=== PATIENT | female | born 1965 | race Two or more races ===

== ENCOUNTER 2017-06-21 11:56 | Day surgery (SDC) | payer OTHER ==
[~2017-06-21] VITALS: Ht 157.5 cm; Wt 59.0 kg
[2017-06-21] VITALS (9 sets, daily range): BP systolic 107–139; BP diastolic 63–88
--- NOTE | 2017-06-21 07:44 | Pre-Procedure Note/Attestation ---
Pre-Procedure Note/Attestation Complete Prior to Procedure Planned Procedure: left Procedure Narrative: knee arthroscopy, possible menisectomy Indications for Procedure Pre-Operative Diagnosis: left knee medial meniscus tear Attestation I attest that I discussed the nature of the procedure; its benefits; risks and complications; and alternatives (and the risks and benefits of such alternatives ), prior to the procedure, with the patient (or the patient's legal parts counter representative). I attest that, if there was a reasonable possibility of needing a blood transfusion, the patient (or the patient's legal parts counter representative) was given the [facility] standardized written summary, pursuant to the Sudheer Blanche Blood Safety Act ([place] Health and Safety Code # 1645, as amended). I attest that I re-evaluated the patient just prior to the surgery and that there has been no change in the patient's H&P, except as documented below: HINA ALCOCER Jun 21, 2017 07:44
--- NOTE | 2017-06-21 07:44 | Operative Note - PDOC ---
Operative Note Operative Note Pre-op Diagnosis: left knee medial meniscus tear Procedure: left knee arthroscopy Post-op Diagnosis: same as pre-op plus Operative Findings: consistent w/pre-op dx studies Anesthesia: MAC Specimen: none Complications: none Condition: stable Estimated Blood Loss: none Implant(s) used?: HINA Mcgee Jun 21, 2017 07:44
[~2017-06-21 11:56] MED LIST: D5 1/2NS 1,000 ML IV SCH; HYDROmorphone 1mg/ml Carpuject SUBQ PRN; Norco 5mg/325mg tab ORAL PRN; Tylenol #3 tab (300mg/30mg) ORAL PRN; ceFAZolin 1gm in D5W 55ml IVP ONE; celeBREX 200mg Cap **SURGERY PATIENTS ONLY ORAL ONE; oxyCONTIN 20mg tab ORAL ONE
[2017-06-21] MEDS ORDERED: PROVENTIL HFA6.7 G1 IH (12:55)
[2017-06-21] MEDS ORDERED: QVAR7.3 GM INH (12:55)
[2017-06-21] MEDS ORDERED: LORATADINE10 M2 PO (12:55)
[2017-06-21] MEDS ORDERED: FLUTICASONE PRO16 G1 NASAL (12:55)
[2017-06-21] MEDS ORDERED: Ketorolac 30mg Inj ONE ×2 (13:40→14:00)
[2017-06-21] MEDS ORDERED: Kenalog-40 1ml Vial ONE (13:40)
[2017-06-21] MEDS ORDERED: Bupivacaine 0.25% Inj 30ml INJ ONE (13:40)
[2017-06-21] MEDS ORDERED: Morphine Sulfate PF 10 ML ONE (13:40)
[2017-06-21] MEDS ORDERED: Lidocaine 1% 10mg/ml/Epi 0.005mg/ml 30ml vial INJ ONE (13:41)
[2017-06-21] MEDS ORDERED: EPINEPHrine 1mg/1ml Amp ONE (13:41)
[2017-06-21] MEDS ORDERED: LR 1000ml ONE (14:00)
[2017-06-21] MEDS ORDERED: Lidocaine 1% MPF 10mg/ml 5ml ONE (14:00)
[2017-06-21] MEDS ORDERED: Midazolam 2mg/2ml Inj ONE (14:00)
[2017-06-21] MEDS ORDERED: Metoclopramide 10mg/2ml Inj ONE (14:00)
[2017-06-21] MEDS ORDERED: NS Irrig 4000ml IRRIG ONE (14:00)
[2017-06-21] MEDS ORDERED: fentaNYL 100 mcg/2 mL IV ONE (14:00)
[2017-06-21] MEDS ORDERED: Duramorph PF 10mg/10ml amp IV ONE (14:06)
[2017-06-21] MEDS ORDERED: Propofol 200mg/20ml IV ONE (14:16)
[2017-06-21] MEDS ORDERED: fentaNYL 100 mcg/2 mL IV PRN (14:45)
[2017-06-21] MEDS ORDERED: Metoclopramide 10mg/2ml Inj IVP PRN (14:45)
--- NOTE | 2017-06-21 14:46 | Anethesia Preoperative Eval ---
Anesthesia Pre-op PMH/ROS General Date of Evaluation: Jun 21, 2017 Time of Evaluation: 14:05 Anesthesiologist: tray ASA Score: ASA 2 Mallampati Score Class I : Soft palate, uvula, fauces, pillars visible Class II: Soft palate, uvula, fauces visible Class III: Soft palate, base of uvula visible Class IV: Only hard plate visible Mallampati Classification: Class II Surgeon: chin Diagnosis: left knee pain Surgical Procedure: left knee arthroscopy Anesthesia History: none Family History: no anesthesia problems Allergies: Coded Allergies: No Known Allergies (Unverified , 06/20/17) Medications: see eMAR Past Medical History Cardiovascular: Denies: HTN, CAD, TX, valve dz, arrhythmia, other Pulmonary: Reports: asthma Gastrointestinal/Genitourinary: Denies: GERD, CRI, ESRD, other Neurologic/Psychiatric: Denies: dementia, CVA, depression/anxiety, TIA, other HEENT: Denies: cataract (L), cataract (R), glaucoma, HYDABURG (L), HYDABURG (R), other Hematology/Immune: Denies: anemia, DVT, bleeding disorder, other Musculoskeletal/Integumentary: Denies: OA, RA, DJD, DDD, edema, other PSxH Narrative: none Anesthesia Pre-op Phys. Exam Physician Exam Last Vital Signs Date Time Temp Pulse Resp B/P (MAP) Pulse Ox O2 Delivery O2 Flow Rate FiO2 06/21/17 12:44 98.4 81 18 134/88 98 Room Air Constitutional: NAD Neurologic: CN 2-12 intact Cardiovascular: RRR Respiratory: CTA Gastrointestinal: S/NT/ND Airway Exam Mallampati Classification 2 Mallampati Score: Class II MO: full Neck: normal TMD: 2fb ROM: full Dentures: no upper, no lower Anesthesia Pre-op A/P Labs Urine Test Test 06/21/17 12:15 Urine HCG, Qualitative Negative Studies Pre-op Studies: EKG - sr Risk Assessment & Plan Plan: general LMA Pre-Antibiotics Drug: ancef Given Within 1 Hr of Incision: Yes Time Given: 14:20 BLANCHE PARDO CRNA Jun 21, 2017 14:46
[2017-06-21] MEDS ORDERED: Ketorolac 30mg Inj IV ONE (15:05)
--- NOTE | 2017-06-21 15:07 | Immediate Post-Op Evaluation ---
Immediate Post-Op Evalulation Immediate Post-Op Evalulation Procedure: left knee arthroscopy Date of Evaluation: Jun 21, 2017 Time of Evaluation: 15:00 IV Fluids: 800 Blood Pressure Systolic: 107 Blood Pressure Diastolic: 63 Pulse Rate: 78 Respiratory Rate: 14 O2 Sat by Pulse Oximetry: 100 Pain Score (1-10): 0 Nausea: No Vomiting: No Complications none Patient Status: awake, reacts, patent Drug: ancef Given Within 1 Hr of Incision: Yes Time Given: 14:20 BLANCHE PARDO CRNA Jun 21, 2017 15:07
--- NOTE | 2017-06-21 15:39 | 48 Hour Post Anesthesia Eval ---
Post Anesthesia Evaluation Procedure: left knee arthroscopy Date of Evaluation: Jun 21, 2017 Time of Evaluation: 15:38 Blood Pressure Systolic: 115 0: 65 Pulse Rate: 75 Respiratory Rate: 14 Temperature (Fahrenheit): 98 O2 Sat by Pulse Oximetry: 96 Airway: patent Nausea: No Vomiting: No Pain Intensity: 0 Hydration Status: adequate Cardiopulmonary Status: stable Mental Status/LOC: patient returned to baseline Post-Anesthesia Complications: none Follow-up care needed: N/A BLANCHE PARDO CRNA Jun 21, 2017 15:39
--- NOTE | 2017-06-22 01:00 | Operative Note - Dictated ---
DATE OF OPERATION: 06/21/2017 PREOPERATIVE DIAGNOSIS: Left knee medial meniscus tear. POSTOPERATIVE DIAGNOSES: 1. Left knee medial meniscus tear. 2. Synovial tissue medial and patellofemoral compartment. 3. Grade 2 chondral damage, trochlear groove and medial compartment. Procedure: 1. Left knee diagnostic arthroscopy 2. Left knee medial, lateral, and patellafemoral synovectomy 3. Left knee chondroplasty patellafemoral compartment SURGEON: Gene Quesada M.D. ANESTHESIA: MAC with local. INDICATION FOR THE PROCEDURE: The patient is a pleasant female who has had progressive left knee pain. She had an MRI, which showed a possible tear of the medial meniscus along with some chondral damage. Given her age and activity level, felt it was reasonable to perform diagnostic arthroscopy, possible meniscectomy, synovectomy and chondroplasty based on intraoperative findings. Risks, limitations, expectations, and complications of the procedure were discussed in detail including continued pain, need for future surgery, risk of anesthesia, medical complications, DVT, PE, and mortality risks. All questions were addressed. DESCRIPTION OF PROCEDURE: After informed consent was obtained, the patient was brought to the operating room. The patient was placed under monitored anesthesia control. Tourniquet was applied on the proximal thigh. Left leg was prepped and draped in a sterile manner. Time-out was performed. Under sterile conditions, 20 mL of Marcaine plain injected in the suprapatellar pouch area. Portal sites were marked out and injected with 1% lidocaine with epinephrine. An Esmarch was used to exsanguinate the extremity. An inferolateral stab incision was then made. Trocar was introduced into the knee joint. Systematic tour of the knee was performed. There was significant damage of patella. There was mild chondral damage in the patellofemoral compartment. It was difficult to visualize the trochlear groove given there is hypertrophic synovial tissue. Medial compartment was entered and medial working portal was established. There was evidence of some chondral damage in the medial femoral condyle, but there was also evidence of a tear in the posterior horn of the medial meniscus. Therefore, using a combination of biters and kings, the portion along the medial meniscus tear was debrided down to stable rim of tissue. Gentle chondroplasty of the medial femoral condyle was performed. Synovectomy was carried of the intercondylar notch and the lateral compartment. The ACL was probed and noted to be intact. Lateral compartment was free of any chondral or meniscal damage. Camera was repositioned in the patellofemoral compartment. Synovectomy was completed. Once this was done, better visualization of the trochlea was obtained, which showed grade 2 chondral damage in the trochlear groove. At this point, the camera was removed. Portal sites were closed using 3-0 Monocryl sutures. Intraarticular injection containing 0.25% Marcaine with epinephrine, 30 mg of Toradol, 5 mL of Duramorph, 40 mg of Kenalog was injected. The patient was awoken and taken to recovery room with stable vital signs. ESTIMATED BLOOD LOSS: None. COMPLICATIONS: None. SPECIMENS: None. IMPLANTS: None. Gene Quesada M.D. DR: MAGGIE JOB#: [id number] CC: ANICETO
== END 2017-06-21 16:45 | disposition home or self-care (01) ==
LOC: SUR 11:56
DX: S83.242A Other tear of medial meniscus, current injury, left knee, initial encounter (principal); W01.0XXA Fall on same level from slipping, tripping and stumbling without subsequent striking against object, initial encounter; Y93.9 Activity, unspecified; Y92.9 Unspecified place or not applicable
CPT/HCPCS: 29876; 81025; J0171; J0690; J1885; J2250; J2274; J2405; J2704; J2765; J3010; J3301; J3490; J7120; 94003; 94150